=== PATIENT | male | born 1970 | race Caucasian/White ===

== ENCOUNTER 2020-01-03 10:12 | Emergency (ER) | payer OTHER ==
[~2020-01-03] VITALS: Ht 180.3 cm; Wt 113.4 kg
[~2020-01-03 10:12] MED LIST: OXYC-432 PO; OXYC1TAB7 PO
[2020-01-03] MEDS ORDERED: HYDROmorphone 1 MG/ML, 1ML INJ IVPush PRN (11:00)
[2020-01-03 11:17] LABS: BASOPHILS # (AUTO) 0.05 x10^3/uL (0-0.1); BASOPHILS % (AUTO) 1 % (0-1); EOSINOPHILS # (AUTO) 0.06 x10^3/uL (0-0.4); EOSINOPHILS % (AUTO) 1 % (1-7); LYMPHOCYTES # (AUTO) 1.48 x10^3/uL (1-3.4); LYMPHOCYTES % (AUTO) 25 % (22-44); MD NO; MEAN CORPUSCULAR HEMOGLOBIN 30.7 pg (27.5-34.5); MEAN CORPUSCULAR VOLUME 90.4 fL (81-97); MEAN PLATELET VOLUME 6.5 fL (7.4-10.4); MONOCYTES # (AUTO) 0.56 x10^3/uL (0.2-0.8); MONOCYTES % (AUTO) 9 % (2-9); NEUTROPHILS # (AUTO) 3.87 x10^3/uL (1.8-6.8); NEUTROPHILS % (AUTO) 64 % (42-75); PLATELET COUNT 267 x10^3/uL (130-400); RED CELL DISTRIBUTION WIDTH 13.1 % (9.4-14.8)
[2020-01-03 11:29] LABS: ANION GAP 7 mmol/L (5-15); CALCIUM 8.8 mg/dL (8.5-10.1); CHLORIDE 109 mmol/L (98-107); CREATININE 0.95 mg/dL (0.7-1.3)
--- NOTE | 2020-01-03 11:37 | NUR ---
TO IMAGING AT THIS TIME
[2020-01-03] MEDS ORDERED: HYDROmorphone 1 MG/ML, 1ML INJ ONE (11:53)
[2020-01-03] MEDS ORDERED: SODIUM CHLORIDE FLUSH 10ML SYR IVF ONE (12:00)
[2020-01-03 12:16] LABS: MICROSCOPIC INDICATED
[2020-01-03 12:40] LABS: CULTURE INDICATED? NO
--- NOTE | 2020-01-03 13:36 | NUR ---
LUNCH RN: PT SITTING ON THE SIDE OF BED. HTN NOTED, OTHER VS WNL. PT STS PAIN DECREASED TO 3/10 AFTER PAIN MEDS. CALL LIGHT WITHIN REACH. AWAITING TEST RESULTS AT THIS TIME
--- NOTE | 2020-01-03 13:55 | NUR ---
RECEIVED REPORT FORM ROB. PT UPRIGHT ON GURNEY AWAKE & CALM, RESPONDS APPROP TO STAFF, NAD, NO NEEDS AT THIS TIME, CALL LIGHT WITHIN REACH.
--- NOTE | 2020-01-03 14:42 | NUR ---
PT TO CT
--- NOTE | 2020-01-03 15:08 | NUR ---
PT RETURNED FROM CT, UPRIGHT ON GURNEY AWAKE & CALM, RESPONDS APPROP TO STAFF, NAD, NO NEEDS AT THIS TIME, CALL LIGHT WITHIN REACH.
[2020-01-03 15:57] VITALS: BP 180/97
--- NOTE | 2020-01-03 16:12 | NUR ---
Patient given discharge instructions and Rx, they have confirmed that they understand the instructions. Patient ambulatory with steady gait.
[2020-01-03] MEDS ORDERED: OMNIPAQUE 350 MG/ML, 100ML BOTTLE ONE (18:11)
== END 2020-01-03 16:19 | disposition home or self-care (01) ==
LOC: ED 12:39
DX: K59.00 Constipation, unspecified (principal); I10 Essential (primary) hypertension; R10.9 Unspecified abdominal pain; F17.200 Nicotine dependence, unspecified, uncomplicated
CPT/HCPCS: 36415; 74174; 74176; 80048; 81001; 82040; 85025; 96374; 99285; J1170; Q9967